=== PATIENT | male | born 1965 | race Caucasian/White ===

== ENCOUNTER 2016-12-21 13:49 | Emergency (ER) | payer OTHER ==
[2016-12-21 14:08] VITALS: RESP 16; TEMP 97.8
--- NOTE | 2016-12-21 14:08 | CPEKG ---
Heart Rate: 49 RR Interval: 1224 P-R Interval: 164 QRSD Interval: 104 QT Interval: 428 QTC Interval: 387 P Climax: 69 QRS Climax: 65 T Wave Climax: 47 EKG Severity - OTHERWISE NORMAL ECG - EKG Impression: SINUS BRADYCARDIA Electronically Signed By: Julio Win 21-Dec-2016 14:37:34
[2016-12-21] MEDS ORDERED: ASPIRIN 81 MG CHEWABLE TAB PO ONE (14:12)
[2016-12-21 14:43] LABS: % IMMATURE GRANULYOCYTES 0.2 % (0.0-1.1); ABSOLUTE IMMATURE GRANULOCYTES 0.01 10^3/uL (0.00-0.10); ADD DIFF? NO; ADD MORPH? NO; ADD SCAN? NO; ATYPICAL LYMPHOCYTE FLAG 0 (0-99); FRAGMENT RBC FLAG 0 (0-99); HEMATOCRIT 42.8 % (40.0-51.0); HEMOGLOBIN 14.8 g/dL (13.7-17.5); LEFT SHIFT FLG 0 (0-99); LIPEMIA HEMOLYSIS FLAG 90 (0-99); MEAN CELL HEMOGLOBIN 32.3 pg (27.9-34.1); MEAN CELL HEMOGLOBIN CONCENTR. 34.6 g/dL (32.4-36.7); MEAN CELL VOLUME 93.4 fL (81.5-99.8); MEAN PLATELET VOLUME 10.1 fL (8.7-11.7); PLATELET CLUMPS FLAG 0 (0-99); PLATELET COUNT 234 10^3/uL (150-400); RED BLOOD CELL COUNT 4.58 10^6/uL (4.40-6.38)
[2016-12-21 14:57] LABS: ALANINE AMINOTRANSFERASE 33 IU/L (21-72); ALBUMIN 3.8 g/dL (3.5-5.0); ALKALINE PHOSPHATASE 36 IU/L (38-126); ANION GAP 8 mEq/L (8-16); ASPARTATE AMINOTRANSFERASE 22 IU/L (17-59); BILIRUBIN,TOTAL 0.6 mg/dL (0.1-1.4); CALCIUM 9.1 mg/dL (8.5-10.4); CARBON DIOXIDE 25 mEq/l (22-31); CHLORIDE 105 mEq/L (97-110); GLOMERULAR FILTRATION RATE > 60; GLUCOSE 109 mg/dL (70-100); POTASSIUM 4.3 mEq/L (3.5-5.2); SODIUM 138 mEq/L (134-144); TOTAL PROTEIN 6.6 g/dL (6.3-8.2)
[2016-12-21 15:09] LABS: TROPONIN I < 0.012 ng/mL (0-0.034)
[2016-12-21] MEDS ORDERED: MAALOX/LIDO/HYOSC GI COCKTAIL 55 ML BOTTLE PO ONE (15:10)
--- NOTE | 2016-12-21 15:15 | EDPHY ---
H & P Chief Complaint Nursing Narrative: C/o heartburn since 1300 today. Pt states he occasionally gets similar pain after eating. Denies SOB, denies pain is radiating. Time Seen by Provider: 12/21/16 15:01 Source: Patient Exam Limitations: No limitations - Personal History Current Tetanus/Diphtheria Vaccine: Unsure Current Tetanus Diphtheria and Acellular Pertussis (TDAP): Unsure - Medical/Surgical History Hx Asthma: No Hx Chronic Respiratory Disease: No Hx Diabetes: No Hx Cardiac Disease: No Hx Renal Disease: No Hx Cirrhosis: No Hx Alcoholism: No Hx HIV/AIDS: No Hx Splenectomy or Spleen Trauma: No Other PMH: acid reflux, ortho surgeries - Social History Smoking Status: Former smoker Constitutional: Initial Vital Signs Temperature (C) 36.6 C 12/21/16 14:04 Heart Rate 58 L 12/21/16 14:04 Respiratory Rate 16 12/21/16 14:04 Blood Pressure 144/103 H 12/21/16 14:04 O2 Sat (%) 96 12/21/16 14:04 O2 Delivery Mode Room Air Allergies/Adverse Reactions: No Known Allergies Allergy (Verified 12/21/16 14:08) Home Medications: Medication Instructions Recorded Zovirax 12/21/16 Medical Decision Making - Data Points Laboratory Results: Laboratory Results 12/21/16 14:30 12/21/16 14:30 12/21/16 12/21/16 14:38 14:30 WBC 5.56 10^3/uL (3.80-9.50) RBC 4.58 10^6/uL (4.40-6.38) Hgb 14.8 g/dL (13.7-17.5) Hct 42.8 % (40.0-51.0) MCV 93.4 fL (81.5-99.8) MCH 32.3 pg (27.9-34.1) MCHC 34.6 g/dL (32.4-36.7) RDW 13.0 % (11.5-15.2) Plt Count 234 10^3/uL (150-400) MPV 10.1 fL (8.7-11.7) Neut % (Auto) 63.1 % (39.3-74.2) Lymph % (Auto) 25.0 % (15.0-45.0) [place] % (Auto) 8.5 % (4.5-13.0) Eos % (Auto) 1.4 % (0.6-7.6) Baso % (Auto) 1.8 H % (0.3-1.7) Nucleat RBC Rel Count 0.0 % (0.0-0.2) Absolute Neuts (auto) 3.51 10^3/uL (1.70-6.50) Absolute Lymphs (auto) 1.39 10^3/uL (1.00-3.00) Absolute Monos (auto) 0.47 10^3/uL (0.30-0.80) Absolute Eos (auto) 0.08 10^3/uL (0.03-0.40) Absolute Basos (auto) 0.10 10^3/uL (0.02-0.10) Absolute Nucleated RBC 0.00 10^3/uL (0-0.01) Immature Gran % 0.2 % (0.0-1.1) Immature Gran # 0.01 10^3/uL (0.00-0.10) D-Dimer < 0.27 ug/mLFEU (0.00-0.50) Sodium 138 mEq/L (134-144) Potassium 4.3 mEq/L (3.5-5.2) Chloride 105 mEq/L (97-110) Carbon Dioxide 25 mEq/l (22-31) Anion Gap 8 mEq/L (8-16) BUN 17 mg/dL (7-23) Creatinine 1.0 mg/dL (0.7-1.3) Estimated GFR > 60 Glucose 109 H mg/dL (70-100) Calcium 9.1 mg/dL (8.5-10.4) Total Bilirubin 0.6 mg/dL 0.6 mg/dL (0.1-1.4) (0.1-1.4) Conjugated Bilirubin 0.3 mg/dL (0.0-0.5) Unconjugated Bilirubin 0.3 mg/dL (0.0-1.1) AST 23 IU/L 22 IU/L (17-59) (17-59) ALT 30 IU/L 33 IU/L (21-72) (21-72) Alkaline Phosphatase 35 L IU/L 36 L IU/L (38-126) (38-126) Troponin I < 0.012 ng/mL (0-0.034) Total Protein 6.5 g/dL 6.6 g/dL (6.3-8.2) (6.3-8.2) Albumin 3.8 g/dL 3.8 g/dL (3.5-5.0) (3.5-5.0) Lipase 187.0 IU/L (23-300) Medications Given: Discontinued Medications Aspirin (Aspirin) 324 mg PO EDNOW ONE Stop: 12/21/16 14:13 Last Admin: 12/21/16 14:17 Dose: Not Given
[2016-12-21 15:28] LABS: ALBUMIN 3.8 g/dL (3.5-5.0); BILIRUBIN,TOTAL 0.6 mg/dL (0.1-1.4); BILIRUBIN-CONJUGATED 0.3 mg/dL (0.0-0.5); BILIRUBIN-UNCONJUGATED 0.3 mg/dL (0.0-1.1); TOTAL PROTEIN 6.5 g/dL (6.3-8.2)
--- NOTE | 2016-12-21 15:34 | UCPHY ---
H & P Patient Type: New Chief Complaint Nursing Narrative: C/o heartburn since 1300 today. Pt states he occasionally gets similar pain after eating. Denies SOB, denies pain is radiating. Time Seen by Provider: 12/21/16 15:01 HPI/ROS: CHIEF COMPLAINT: Heartburn HISTORY OF PRESENT ILLNESS: Patient is a 51-year-old man who comes to the Urgent Care complaining of heartburn that began suddenly at 1:00 p.m. He states that this has happened to him once or twice before most recently 1 week ago in [place]. Today he was eating some chicken soup when it began on the 3rd bite. He does get heartburn frequently and usually resolves with Tums but today seemed more severe than usual. He denies shortness of breath or chest pain. He denies any abdominal pain, nausea vomiting. He did have mild diaphoresis. He tried taking aspirin and Tums but threw it up. He does not have any known cardiac disease or significant past medical history. He denies recent fevers or illness. REVIEW OF SYSTEMS: Constitutional: denies: chills, fever, recent illness, recent injury EENTM: denies: blurred vision, double vision, nose congestion Respiratory: denies: cough, shortness of breath Cardiac: See HPI denies: chest pain, irregular heart rate, lightheadedness, palpitations Gastrointestinal/Abdominal: See HPI Genitourinary: denies: dysuria, frequency, hematuria, pain Musculoskeletal: denies: joint pain, muscle pain Skin: denies: lesions, rash, jaundice, bruising Neurological: denies: headache, numbness, paresthesia, tingling, dizziness, weakness Hematologic/Lymphatic: denies: blood clots, easy bleeding, easy bruising Immunologic/allergic: denies: HIV/AIDS, transplant EXAM: GENERAL: Well-appearing, well-nourished and in no acute distress. HEAD: Atraumatic, normocephalic. EYES: Pupils equal round and reactive to light, extraocular movements intact, sclera anicteric, conjunctiva are normal. ENT: TMs normal, nares patent, oropharynx clear without exudates. Moist mucous membranes. NECK: Normal range of motion, supple without lymphadenopathy or JVD. LUNGS: Breath sounds clear to auscultation bilaterally and equal. No wheezes rales or rhonchi. HEART: Regular rate and rhythm without murmurs, rubs or gallops. ABDOMEN: Soft, nontender, normoactive bowel sounds. No guarding, no rebound. No masses appreciated. BACK: No CVA tenderness, no spinal tenderness, step-offs or deformities EXTREMITIES: Normal range of motion, no pitting or edema. No clubbing or cyanosis. NEUROLOGICAL: Cranial nerves II through XII grossly intact. Normal speech, normal gait. 5/5 strength, normal movement in all extremities, normal sensation PSYCH: Normal mood, normal affect. SKIN: Warm, dry, normal turgor, no visible rashes or lesions. Source: Patient Exam Limitations: No limitations - Personal History Current Tetanus/Diphtheria Vaccine: Unsure Current Tetanus Diphtheria and Acellular Pertussis (TDAP): Unsure - Medical/Surgical History Hx Asthma: No Hx Chronic Respiratory Disease: No Hx Diabetes: No Hx Cardiac Disease: No Hx Renal Disease: No Hx Cirrhosis: No Hx Alcoholism: No Hx HIV/AIDS: No Hx Splenectomy or Spleen Trauma: No Other PMH: acid reflux, ortho surgeries - Family History Significant Family History: Hypertension - Social History Smoking Status: Former smoker Alcohol Use: Sober Drug Use: None Constitutional: Initial Vital Signs Temperature (C) 36.6 C 12/21/16 14:04 Heart Rate 58 L 12/21/16 14:04 Respiratory Rate 16 12/21/16 14:04 Blood Pressure 144/103 H 12/21/16 14:04 O2 Sat (%) 96 12/21/16 14:04 O2 Delivery Mode Room Air Allergies/Adverse Reactions: No Known Allergies Allergy (Verified 12/21/16 14:08) Home Medications: Medication Instructions Recorded Zovirax 12/21/16 Medical Decision Making - Diagnostics EKG Interpretation: An EKG obtained and was read and documented in trace view. Please see trace view for full reading and report. Sinus bradycardia, no acute ischemic changes Imaging: X-ray: chest x-ray was obtained. I viewed the images myself on the PACS system. My interpretation of the images is: negative for acute disease . The radiologist interpretation is negative. ED Course/Re-evaluation: 3:50 p.m. we discussed the lab and x-ray results. Patient is reassured. He is currently symptom free. The GI cocktail did seem to help. He is confident that this is heartburn. I offered a 4 hour troponin to further rule out heart disease. He declines this. He is asking for referral to a computational biologist. We discussed indications for returning. Differential Diagnosis: Partial list of the Differential diagnosis considered include but were not limited to; gastritis, peptic ulcer disease, GERD and although unlikely based on the history and physical exam, I also considered acute coronary disease, arrhythmia, pneumothorax, PE, esophageal tear, dissection. I discussed these differential diagnoses and the plan with the patient as well as the usual and expected course. The patient understands that the diagnosis is provisional and that in medicine we are not always correct and that further workup is often warranted. Usual and customary warnings were given. All of the patient's questions were answered. The patient was instructed to return to the emergency department should the symptoms at all worsen or return, otherwise to followup with the physician as we discussed. - Data Points Laboratory Results: Laboratory Results 12/21/16 14:30 12/21/16 14:30 12/21/16 12/21/16 14:38 14:30 WBC 5.56 10^3/uL (3.80-9.50) RBC 4.58 10^6/uL (4.40-6.38) Hgb 14.8 g/dL (13.7-17.5) Hct 42.8 % (40.0-51.0) MCV 93.4 fL (81.5-99.8) MCH 32.3 pg (27.9-34.1) MCHC 34.6 g/dL (32.4-36.7) RDW 13.0 % (11.5-15.2) Plt Count 234 10^3/uL (150-400) MPV 10.1 fL (8.7-11.7) Neut % (Auto) 63.1 % (39.3-74.2) Lymph % (Auto) 25.0 % (15.0-45.0) [place] % (Auto) 8.5 % (4.5-13.0) Eos % (Auto) 1.4 % (0.6-7.6) Baso % (Auto) 1.8 H % (0.3-1.7) Nucleat RBC Rel Count 0.0 % (0.0-0.2) Absolute Neuts (auto) 3.51 10^3/uL (1.70-6.50) Absolute Lymphs (auto) 1.39 10^3/uL (1.00-3.00) Absolute Monos (auto) 0.47 10^3/uL (0.30-0.80) Absolute Eos (auto) 0.08 10^3/uL (0.03-0.40) Absolute Basos (auto) 0.10 10^3/uL (0.02-0.10) Absolute Nucleated RBC 0.00 10^3/uL (0-0.01) Immature Gran % 0.2 % (0.0-1.1) Immature Gran # 0.01 10^3/uL (0.00-0.10) D-Dimer < 0.27 ug/mLFEU (0.00-0.50) Sodium 138 mEq/L (134-144) Potassium 4.3 mEq/L (3.5-5.2) Chloride 105 mEq/L (97-110) Carbon Dioxide 25 mEq/l (22-31) Anion Gap 8 mEq/L (8-16) BUN 17 mg/dL (7-23) Creatinine 1.0 mg/dL (0.7-1.3) Estimated GFR > 60 Glucose 109 H mg/dL (70-100) Calcium 9.1 mg/dL (8.5-10.4) Total Bilirubin 0.6 mg/dL 0.6 mg/dL (0.1-1.4) (0.1-1.4) Conjugated Bilirubin 0.3 mg/dL (0.0-0.5) Unconjugated Bilirubin 0.3 mg/dL (0.0-1.1) AST 23 IU/L 22 IU/L (17-59) (17-59) ALT 30 IU/L 33 IU/L (21-72) (21-72) Alkaline Phosphatase 35 L IU/L 36 L IU/L (38-126) (38-126) Troponin I < 0.012 ng/mL (0-0.034) Total Protein 6.5 g/dL 6.6 g/dL (6.3-8.2) (6.3-8.2) Albumin 3.8 g/dL 3.8 g/dL (3.5-5.0) (3.5-5.0) Lipase 187.0 IU/L (23-300) Medications Given: Discontinued Medications Al Hydroxide/Mg Hydroxide (Maalox Susp) 30 ml PO EDNOW ONE Stop: 12/21/16 15:43 Last Admin: 12/21/16 15:45 Dose: 30 ml Aspirin (Aspirin) 324 mg PO EDNOW ONE Stop: 12/21/16 14:13 Last Admin: 12/21/16 14:17 Dose: Not Given Hyoscyamine Sulfate (Levsin, Hyomax-Sl) 0.125 mg PO EDNOW ONE Stop: 12/21/16 15:43 Last Admin: 12/21/16 15:45 Dose: 0.125 mg Miscellaneous Medication (Gi Cocktail) 55 ml PO EDNOW ONE Stop: 12/21/16 15:11 Last Admin: 12/21/16 15:42 Dose: Not Given Departure - Departure Disposition: Home, Routine, Self-Care Clinical Impression: GERD (gastroesophageal reflux disease) Qualifiers: Esophagitis presence: with esophagitis Qualifier Code: (K21.0) Gastro- esophageal reflux disease with esophagitis Condition: Fair Instructions: Gastroesophageal Reflux Disease (ED) Referrals: Vinayak Giron DO [Primary Care Provider] - As per Instructions Gissel Wahl MD [Medical Doctor] - As per Instructions - PQRS PQRS Measurement: Not applicable
--- NOTE | 2016-12-21 15:36 | DX ---
PA and Lateral Chest History: Chest pain. Comparison: Rib series April 02, 2008.. Findings: The lungs are clear without focal consolidation. There is no pneumothorax or pleural effusi on. The heart and pulmonary vasculature are normal. Old healed right clavicular fracture is noted. Impression: No acute findings in the chest.
[2016-12-21] MEDS ORDERED: HYOSCYAMINE SULFATE 0.125 MG TAB ONE (15:40)
[2016-12-21] MEDS ORDERED: MAG HYDROX/AL HYDROX/SIMETH 30 ML UDCUP ONE (15:40)
[2016-12-21] MEDS ORDERED: HYOSCYAMINE SULFATE 0.125 MG TAB PO ONE (15:42)
[2016-12-21] MEDS ORDERED: MAG HYDROX/AL HYDROX/SIMETH 30 ML UDCUP PO ONE (15:42)
[2016-12-21 16:15] VITALS: BP 123/72; PULSE 57; O2SAT 94
== END 2016-12-21 16:15 | disposition home or self-care (01) ==
LOC: CED 13:49
DX: K21.9 Gastro-esophageal reflux disease without esophagitis (principal)
CPT/HCPCS: 71020-PO; 80053-PO; 80076-PO; 83690-PO; 84484-PO; 85025-PO; 85378-PO; 93010-PO; 99205-PO; G0463-PO